=== PATIENT | male | born 1995 | race African-American/Black ===

== ENCOUNTER 2017-10-10 13:06 | Emergency (ER) | payer OTHER ==
[2017-10-10] MEDS: IBUPROFEN 800 MG TAB PO (16:15)
[2017-10-10] MEDS: NORCO, ANEXSIA 5/325MG TABLET (HYDROcodone/ACETAMINOPHEN) PO (17:26)
== END 2017-10-10 18:08 | disposition home or self-care (01) ==
LOC: M ED 13:06
DX: S80.12XA Contusion of left lower leg, initial encounter (principal); W10.8XXA Fall (on) (from) other stairs and steps, initial encounter; Y92.89 Other specified places as the place of occurrence of the external cause; Z79.899 Other long term (current) drug therapy
CPT/HCPCS: 73590

== ENCOUNTER → 2017-10-21 | Outpatient (CLI) | payer OTHER | LOC: M PAIN 14:30 | DX: M51.16 Intervertebral disc disorders with radiculopathy, lumbar region (principal); M54.16 Radiculopathy, lumbar region; S32.040A Wedge compression fracture of fourth lumbar vertebra, initial encounter for closed fracture; S99.912A Unspecified injury of left ankle, initial encounter; N52.9 Male erectile dysfunction, unspecified; F41.9 Anxiety disorder, unspecified; F32.9 Major depressive disorder, single episode, unspecified; F43.10 Post-traumatic stress disorder, unspecified; G43.909 Migraine, unspecified, not intractable, without status migrainosus; F17.210 Nicotine dependence, cigarettes, uncomplicated; Z87.820 Personal history of traumatic brain injury; Z79.899 Other long term (current) drug therapy; Z88.8 Allergy status to other drugs, medicaments and biological substances; W19.XXXA Unspecified fall, initial encounter; Y92.9 Unspecified place or not applicable | CPT/HCPCS: G0463 ==

== ENCOUNTER → 2017-11-04 | Outpatient (CLI) | payer OTHER | LOC: M PAIN 12:30 | DX: M51.16 Intervertebral disc disorders with radiculopathy, lumbar region (principal); S32.040A Wedge compression fracture of fourth lumbar vertebra, initial encounter for closed fracture; F41.9 Anxiety disorder, unspecified; F32.9 Major depressive disorder, single episode, unspecified; F43.10 Post-traumatic stress disorder, unspecified; F52.9 Unspecified sexual dysfunction not due to a substance or known physiological condition; Z79.899 Other long term (current) drug therapy; Z88.8 Allergy status to other drugs, medicaments and biological substances; Z87.891 Personal history of nicotine dependence; Y99.8 Other external cause status; Y92.89 Other specified places as the place of occurrence of the external cause; Y93.89 Activity, other specified; X58.XXXA Exposure to other specified factors, initial encounter | CPT/HCPCS: G0463 ==

== ENCOUNTER → 2017-12-02 | Outpatient (CLI) | payer OTHER | LOC: M PAIN 11:00 | DX: M51.16 Intervertebral disc disorders with radiculopathy, lumbar region (principal); G89.29 Other chronic pain; F41.9 Anxiety disorder, unspecified; F32.9 Major depressive disorder, single episode, unspecified; F43.10 Post-traumatic stress disorder, unspecified; G43.909 Migraine, unspecified, not intractable, without status migrainosus; Z79.899 Other long term (current) drug therapy; Z88.8 Allergy status to other drugs, medicaments and biological substances; Z87.820 Personal history of traumatic brain injury; Z87.891 Personal history of nicotine dependence | CPT/HCPCS: G0463 ==

== ENCOUNTER → 2017-12-13 | Outpatient (CLI) | payer OTHER ==
[~2017-12-13] MED LIST: ISOVUE-M 300 61% 15ML VIAL (Q9967) As Ordered; LIDOCAINE 1% SDV INJ 30 ML VIAL As Ordered; diazePAM 5 MG TAB As Ordered; methylPREDNISolone SUSP 40 MG/ML (DEPO-medrol) VIAL (J1030) As Ordered; oxyCODONE 5MG TAB As Ordered
== END ==
LOC: M PAIN 10:30
DX: G89.29 Other chronic pain (principal); M51.17 Intervertebral disc disorders with radiculopathy, lumbosacral region; F41.9 Anxiety disorder, unspecified; F32.9 Major depressive disorder, single episode, unspecified; F43.10 Post-traumatic stress disorder, unspecified; G43.909 Migraine, unspecified, not intractable, without status migrainosus; Z79.899 Other long term (current) drug therapy; Z88.8 Allergy status to other drugs, medicaments and biological substances; Z87.820 Personal history of traumatic brain injury; Z87.891 Personal history of nicotine dependence
CPT/HCPCS: J1030

== ENCOUNTER → 2018-01-19 | Outpatient (CLI) | payer OTHER | LOC: M PAIN 14:15 | DX: M53.3 Sacrococcygeal disorders, not elsewhere classified (principal); S32.040S Wedge compression fracture of fourth lumbar vertebra, sequela; G43.909 Migraine, unspecified, not intractable, without status migrainosus; F41.9 Anxiety disorder, unspecified; F32.9 Major depressive disorder, single episode, unspecified; F43.10 Post-traumatic stress disorder, unspecified; Z79.899 Other long term (current) drug therapy; Z88.8 Allergy status to other drugs, medicaments and biological substances; Z87.820 Personal history of traumatic brain injury; Z87.891 Personal history of nicotine dependence | CPT/HCPCS: G0463 ==

== ENCOUNTER 2018-01-31 01:59 | Emergency (ER) | payer OTHER ==
[2018-01-31 03:05] LABS: KETONE, URINE AUTO RFX NEGATIVE (NEGATIVE); LEUKOCYTE ESTERASE UR AUTO RFX NEGATIVE (NEGATIVE); NITRITE, URINE AUTO RFX NEGATIVE (NEGATIVE); RBC, URINE AUTO RFX 1 /HPF (0-3); SPECIFIC GRAVITY UR AUTO RFX 1.019 (1.002-1.035); SQUAM EPITHELIAL CELL UR AURFX 0 /HPF (0-6); WBC, URINE AUTO RFX 1 /HPF (0-3)
[2018-01-31] MEDS: CEPHALEXIN 500 MG CAP PO (04:04)
== END 2018-01-31 04:14 | disposition home or self-care (01) ==
LOC: M ED 01:59
DX: L03.116 Cellulitis of left lower limb (principal); Z79.899 Other long term (current) drug therapy; Z88.8 Allergy status to other drugs, medicaments and biological substances; Z91.048 Other nonmedicinal substance allergy status; F17.210 Nicotine dependence, cigarettes, uncomplicated
CPT/HCPCS: 81001

== ENCOUNTER 2018-07-16 21:27 | Emergency (ER) | payer OTHER ==
[~2018-07-16] VITALS: Ht 165.1 cm; Wt 61.4 kg
[~2018-07-16 21:27] MED LIST changes: +BUPR10TASR PO; +CYMB1CAP5 PO; -ISOVUE-M 300 61% 15ML VIAL (Q9967) As Ordered; +KEFL500C17 PO; -LIDOCAINE 1% SDV INJ 30 ML VIAL As Ordered; +PRAZ2CAP PO; +TIZA2CAP PO; +TRAM50TA2 PO; +TRAZ-160 PO; +TYLE325T5 PO; -diazePAM 5 MG TAB As Ordered; -methylPREDNISolone SUSP 40 MG/ML (DEPO-medrol) VIAL (J1030) As Ordered; -oxyCODONE 5MG TAB As Ordered
[2018-07-16] MEDS ORDERED: AZITHROMYCIN 250 MG TAB PO ONE (22:30)
[2018-07-16] MEDS ORDERED: cefTRIAXone SOD 250 MG VIAL (J0696) IM ONE (22:30)
[2018-07-16] MEDS ORDERED: LIDOCAINE 1% SDV 5 ML VIAL DILUENT ONE (22:30)
[2018-07-16 23:02] VITALS: BP 118/62
[2018-07-17 00:35] LABS: CHLAMYDIA DNA AMPLIFICATION POSITIVE (NEGATIVE); GC DNA AMPLIFICATION POSITIVE (NEGATIVE)
[2018-07-17 10:59] LABS: HEPATITIS B SURFACE ANTIBODY POSITIVE (POSITIVE); HEPATITIS B SURFACE ANTIGEN NEGATIVE (NEGATIVE); HEPATITIS C VIRUS ABY INDEX < 0.0 INDEX (<0.8); HIV 1&2 SCREEN CENTAUR NEGATIVE (NEGATIVE)
== END 2018-07-16 23:02 | disposition home or self-care (01) ==
LOC: M ED 21:27
DX: R30.0 Dysuria (principal); Z20.2 Contact with and (suspected) exposure to infections with a predominantly sexual mode of transmission; M54.5 Low back pain; F33.9 Major depressive disorder, recurrent, unspecified; F41.9 Anxiety disorder, unspecified; G47.33 Obstructive sleep apnea (adult) (pediatric); Z79.899 Other long term (current) drug therapy; Z88.8 Allergy status to other drugs, medicaments and biological substances
CPT/HCPCS: 81001; 86706; 86780; 86803; 87086; 87340; 87389; 87491; 87591; 96372; 99283; J0696